=== PATIENT | male | born 1950 | race Caucasian/White ===

== ENCOUNTER 2021-05-23 04:24 | Day surgery (SDC) | payer OTHER ==
[2021-05-19 16:27] VITALS: BMI 31.7
[2021-05-23] MEDS ORDERED: MIDAZOLAM HCL 2 MG/2 ML SINGLE DOSE VIAL ONE (09:18)
[2021-05-23 12:54] VITALS: BP 137/89; PULSE 64; TEMP 98.2
== END 2021-05-23 12:50 | disposition home or self-care (01) ==
LOC: JASU-SURG 04:24
PROVIDERS: ATTEND Urology
PROC: 0TF3XZZ Fragmentation in Right Kidney Pelvis, External Approach (ICD-10-PCS; principal; 2021-05-23 09:00)
DX: N20.0 Calculus of kidney (principal)

== ENCOUNTER 2022-07-12 20:06 | Emergency (ER) | payer OTHER ==
[2022-07-12] MEDS ORDERED: morphine CARPU-JECT 4 MG/1 ML DISP.SYRIN IVPUSH ONE (20:22)
[2022-07-12 20:27] VITALS: BP 134/84; PULSE 73; RESP 18; TEMP 99.2; BMI 32.5
[2022-07-12] MEDS ORDERED: morphine SULFATE 4 MG/ML VIAL ONE (20:34)
[2022-07-12 20:41] LABS: MCHC 34.1 g/dl (32.0-35.9); MEAN PLT VOLUME 7.6 fl (7.5-11.1); PLATELET COUNT 204.2 10^3/uL (134-434); RBC 4.82 10^6/uL (4.00-5.60); WHITE BLOOD COUNT 8.1 10^3/uL (4.0-10.8)
[2022-07-12 20:56] LABS: ALBUMIN 3.8 g/dl (3.4-5.0); BILIRUBIN,TOTAL 0.9 mg/dl (0.2-1); CALCIUM 8.8 mg/dl (8.5-10); CREATININE 1.2 mg/dl (0.55-1.3); TOT PROT 6.6 g/dl (6.4-8.2)
[2022-07-12] MEDS ORDERED: KETOROLAC TROMETHAMINE 60 MG/2 ML VIAL IM ONE (23:09)
[2022-07-12] MEDS ORDERED: predniSONE 20 MG TABLET (UD) PO ONE (23:09)
[2022-07-12] MEDS ORDERED: KETOROLAC TROMETHAMINE 60 MG/2 ML VIAL ONE (23:16)
[2022-07-12] MEDS ORDERED: predniSONE 20 MG TABLET (UD) ONE (23:16)
== END 2022-07-12 23:31 | disposition home or self-care (01) ==
LOC: FER 20:06
PROC: 3E0233Z Introduction of Anti-inflammatory into Muscle, Percutaneous Approach (ICD-10-PCS; principal; 2022-07-12)
PROC: 3E033NZ Introduction of Analgesics, Hypnotics, Sedatives into Peripheral Vein, Percutaneous Approach (ICD-10-PCS; 2022-07-12)
DX: M54.32 Sciatica, left side (principal)
CPT/HCPCS: 36415; 74177-TC; 80053; 85027; 99285-25; Q9967

== ENCOUNTER 2024-03-19 19:35 | Observation (INO) | payer OTHER ==
[2024-03-19 19:40] VITALS: BMI 31.8
[2024-03-19] MEDS ORDERED: ACETAMINOPHEN INJECTION 100 ML IVPB ONE (20:49)
[2024-03-19] MEDS: ACETAMINOPHEN 1000 MG/100 ML BAG IVPB ONE (21:05)
[2024-03-19 21:09] LABS: BASO % 0.5 % (0-2.0); EOS % 0.5 % (0-4.5); HEMATOCRIT 38.8 % (35.4-49); HEMOGLOBIN 13.6 GM/dL (11.7-16.9); LYMPH % 16.6 % (8-40); MCH 29.3 pg (25.7-33.7); MEAN CELL VOLUME 83.9 fl (80-96); MEAN PLT VOLUME 7.6 fl (7.5-11.1); NEUT % 76.4 % (42.8-82.8); PLATELET COUNT 207 10^3/uL (134-434); RBC 4.63 M/mm3 (4.00-5.60); RDW 14.1 % (11.9-15.9); WHITE BLOOD COUNT 9.3 K/mm3 (4.0-10.0)
[2024-03-19 21:19] LABS: INR 1.12 (0.83-1.09); PROTHROMBIN TIME (PATIENT) 12.6 SEC (9.7-13.0)
[2024-03-19 21:22] LABS: ACTIVATED PTT 34.4 SECONDS (25.2-36.5)
[2024-03-19 21:37] LABS: POTASSIUM 3.7 mmol/L (3.5-5.1)
[2024-03-19 21:40] LABS: ALBUMIN 3.4 g/dl (3.4-5.0); BLOOD UREA NITROGEN 16.8 mg/dL (7-18); CALCIUM 9.1 mg/dL (8.5-10.1)
[2024-03-19 21:44] LABS: CREATININE 1.1 mg/dL (0.55-1.3)
[2024-03-19 21:45] LABS: BILIRUBIN,TOTAL 0.7 mg/dL (0.2-1); TOT PROT 6.4 g/dl (6.4-8.2)
[2024-03-20] MEDS ORDERED: ASPIRIN 81 MG CHEWABLE TABLETS ONE (00:39)
[2024-03-20] MEDS: ASPIRIN 81 MG CHEWABLE TABLETS PO ONE ×2 (01:33)
[2024-03-20 04:56] VITALS: RESP 18
[2024-03-20] MEDS: INSULIN ASPART SLIDING SCALE (NOVOLOG) 1 VIAL SQ SCH (06:21)
[2024-03-20 08:29] LABS: HEMATOCRIT 37.9 % (35.4-49); HEMOGLOBIN 13.5 GM/dL (11.7-16.9); MCH 29.8 pg (25.7-33.7); MCHC 35.5 g/dl (32.0-35.9); MEAN CELL VOLUME 83.8 fl (80-96); MEAN PLT VOLUME 7.4 fl (7.5-11.1); PLATELET COUNT 204 10^3/uL (134-434); RBC 4.53 M/mm3 (4.00-5.60); RDW 13.9 % (11.9-15.9); WHITE BLOOD COUNT 7.8 K/mm3 (4.0-10.0)
[2024-03-20 08:38] LABS: POTASSIUM 3.3 mmol/L (3.5-5.1)
[2024-03-20 08:41] LABS: MAGNESIUM 1.7 mg/dL (1.8-2.4)
[2024-03-20 08:44] LABS: CALCIUM 9.1 mg/dL (8.5-10.1)
[2024-03-20 08:45] LABS: ALBUMIN 3.4 g/dl (3.4-5.0); BLOOD UREA NITROGEN 16.1 mg/dL (7-18)
[2024-03-20 08:49] LABS: BILIRUBIN,TOTAL 0.8 mg/dL (0.2-1); CREATININE 1.1 mg/dL (0.55-1.3); TOT PROT 6.2 g/dl (6.4-8.2)
[2024-03-20] MEDS ORDERED: ENOXAPARIN NA (PORCINE) 40 MG/0.4 ML DISP.SYRIN SQ SCH (10:00)
[2024-03-20] MEDS ORDERED: PATIENT'S OWN MEDICATION (NON-FORMULARY) (Losartan/Hydrochlorothiazide [Losartan-Hctz 100- PO SCH (10:00)
[2024-03-20] MEDS: POTASSIUM CHLORIDE ORAL LIQUID 20 MEQ/15 ML PO ONE (10:12)
[2024-03-20] MEDS: LOSARTAN POTASSIUM 50 MG TABLET PO SCH (10:12)
[2024-03-20] MEDS: HYDROCHLOROTHIAZIDE 25 MG TABLET (FP) PO SCH (10:12)
[2024-03-20] MEDS: amLODIPine BESYLATE 5 MG TABLET (FP) PO SCH (10:13)
[2024-03-20] MEDS: APIXABAN 5 MG TABLET PO SCH (10:13)
[2024-03-20] MEDS: PANTOPRAZOLE 40 MG TABLET PO SCH (10:13)
[2024-03-20] MEDS: OXYBUTYNIN CHLORIDE 5 MG TABLET PO SCH (11:14)
[2024-03-20 15:43] VITALS: BP 135/86; PULSE 76; TEMP 98.2
[2024-03-20] MEDS ORDERED: DONEPEZIL HCL 5 MG TABLET (FP) PO SCH (22:00)
== END 2024-03-20 18:31 | disposition home or self-care (01) ==
LOC: JER 19:35 → JERBED 03-20 01:14 → J4S 03-20 04:28
PROVIDERS: ADMIT Internal Medicine; ATTEND Internal Medicine
PROC: 3E033NZ Introduction of Analgesics, Hypnotics, Sedatives into Peripheral Vein, Percutaneous Approach (ICD-10-PCS; principal; 2024-03-20)
DX: M79.10 Myalgia, unspecified site (principal); F03.90 Unspecified dementia, unspecified severity, without behavioral disturbance, psychotic disturbance, mood disturbance, and anxiety; F31.9 Bipolar disorder, unspecified; R94.31 Abnormal electrocardiogram [ECG] [EKG]; Z95.0 Presence of cardiac pacemaker; I10 Essential (primary) hypertension; I48.91 Unspecified atrial fibrillation; N20.0 Calculus of kidney; Z79.01 Long term (current) use of anticoagulants; Z86.73 Personal history of transient ischemic attack (TIA), and cerebral infarction without residual deficits; K92.9 Disease of digestive system, unspecified; G43.909 Migraine, unspecified, not intractable, without status migrainosus
CPT/HCPCS: 0241U-QW; 36415; 70450-TC; 71045-TC-FY; 71275-TC; 80053; 80061; 82550; 82962; 83735; 84443; 84484; 85025; 85027; 85610; 85730; 93005; 93010; 96374; 99285-25; G0378; J0131; Q9967